=== PATIENT | female | born 1940 | race Caucasian/White ===

== ENCOUNTER 2017-02-18 10:25 | Emergency (ER) | payer OTHER, MEDICARE ==
[2017-02-18 10:39] VITALS: TEMP 97.5; BMI 32.2
[2017-02-18] MEDS ORDERED: ONDANSETRON 4 MG/2 ML VIAL IVPUSH ONE (11:10)
[2017-02-18] MEDS ORDERED: SIMETHICONE 80 MG TAB.CHEW (FP) PO ONE (11:11)
[2017-02-18 11:20] LABS: BASOPHIL 0.5 % (0-2.0); EOSINOPHIL 2.3 % (0-4.5); MCH 27.4 pg (25.7-33.7); MCHC 32.2 g/dl (32.0-36.0); MEAN CELL VOLUME 84.9 fl (80-96); MEAN PLT VOLUME 7.4 fl (7.5-11.1); NEUTROPHILS 69.5 % (42.8-82.8); PLATELET COUNT 290 K/MM3 (134-434); RDW 14.2 % (11.6-15.6); WHITE BLOOD COUNT 8.3 K/mm3 (4.0-10.0)
[2017-02-18] MEDS ORDERED: ONDANSETRON 4 MG/2 ML VIAL ONE (11:27)
[2017-02-18 11:30] LABS: URINE APPEARANCE CLEAR; URINE BILIRUBIN NEGATIVE (NEGATIVE); URINE BLOOD NEGATIVE (NEGATIVE); URINE COLOR LTYELLOW; URINE GLUCOSE (UA) NEGATIVE (NEGATIVE); URINE KETONE TRACE (NEGATIVE); URINE NITRITE NEGATIVE (NEGATIVE); URINE PROTEIN NEGATIVE (NEGATIVE); URINE UROBILINOGEN NEGATIVE E.U./dl (0.2-1.0)
[2017-02-18 11:34] LABS: URINE LEUK ESTERASE TRACE (NEGATIVE)
[2017-02-18 11:35] LABS: URINE MUCUS RARE; URINE RBC <1 /hpf (0-3); URINE WBC 3 /hpf (3-5)
[2017-02-18 11:47] LABS: ALBUMIN 3.5 g/dl (3.4-5.0); BILIRUBIN,TOTAL 0.9 mg/dL (0.2-1.0); CALCIUM 9.2 mg/dL (8.5-10.1); COCKROFT - GAULT 56.542; TOT PROT 7.4 g/dl (6.4-8.2)
--- NOTE | 2017-02-18 11:53 | PDOC ---
History of Present Illness - General History Source: Patient, Family Exam Limitations: No Limitations - History of Present Illness Initial Comments: 02/18/17 11:53 The patient is a 76 year old female with a significant past medical history of hypertension, and hypercholesterolemia, presenting to the Emergency Department with mid abdominal pain and nausea. The patient reports that her mid abdominal pain, which she describes as her stomach, started about one week ago. She admits that the pain is exacerbated with meals, and reports associated nausea. The patient states that she feels her abdomen is gassy or distended. The patient s daughter reports that the patient has vomited once or twice this past week. The patient reports taking Pepto Bismol for her symptoms with some relief. She reports having dark stool today, which is most likely due to the Pepto Bismol. The patient denies diarrhea, or constipation. Patient denies recent change in diet. Patient denies change in appetite, or weight gain. Patient denies fever, chills, and cough. Patient denies neck pain, or back pain. Surgical Hx: appendectomy <Stephanie Waite - Last Filed: 02/18/17 13:10> <Michel Baptiste - Last Filed: 02/18/17 14:20> - General Chief Complaint: Nausea Stated Complaint: ABD PAIN Time Seen by Provider: 02/18/17 11:03 Past History <Stephanie Waite - Last Filed: 02/18/17 13:10> - Past Medical History HTN: Yes Hypercholesterolemia: Yes - Surgical History Appendectomy: Yes - Psycho/Social/Smoking Cessation Hx Anxiety: No Suicidal Ideation: No Smoking History: Never smoked Have you smoked in the past 12 months: No Information on smoking cessation initiated: No Hx Alcohol Use: No Drug/Substance Use Hx: No Substance Use Type: None <Michel Baptiste - Last Filed: 02/18/17 14:20> - Past Medical History Allergies/Adverse Reactions: Allergies Allergy/AdvReac Type Severity Reaction Status Date / Time No Known Allergies Allergy Verified 02/18/17 10:36 Home Medications: Ambulatory Orders Atorvastatin Ca [Lipitor] 10 mg PO HS 02/18/17 Lorazepam 1 mg PO DAILY 02/18/17 Magnesium Citrate [Citroma -] 150 ml PO BID #1 bottle 02/18/17 Ramipril 10 mg PO DAILY 02/18/17 Review of Systems - Review of Systems Able to Perform ROS?: Yes Comments:: 02/18/17 11:53 GENERAL/CONSTITUTIONAL: No fever or chills. No weakness. HEAD, EYES, EARS, NOSE AND THROAT: No change in vision. No ear pain or discharge. No sore throat. CARDIOVASCULAR: No chest pain or shortness of breath. RESPIRATORY: No cough, wheezing, or hemoptysis. GASTROINTESTINAL: + mild abdominal pain, + nausea, + vomiting, + dark stools, + gassy. No diarrhea or constipation. GENITOURINARY: No dysuria, frequency, or change in urination. MUSCULOSKELETAL: No joint or muscle swelling or pain. No neck or back pain. SKIN: No rash NEUROLOGIC: No headache, vertigo, loss of consciousness, or change in strength/ sensation. ENDOCRINE: No increased thirst. No abnormal weight change. HEMATOLOGIC/LYMPHATIC: No anemia, easy bleeding, or history of blood clots. ALLERGIC/IMMUNOLOGIC: No hives or skin allergy. <Stephanie Waite - Last Filed: 02/18/17 13:10> *Physical Exam - Vital Signs Last Vital Signs Temp Pulse Resp BP Pulse Ox 97.5 F L 66 18 177/82 100 02/18/17 10:37 02/18/17 10:37 02/18/17 10:37 02/18/17 10:37 02/18/17 10:37 - Physical Exam Comments: 02/18/17 11:54 GENERAL: Patient appears nervous. Awake, alert, and fully oriented, in no acute distress HEAD: No signs of trauma EYES: PERRLA, EOMI, sclera anicteric, conjunctiva clear ENT: Auricles normal inspection, hearing grossly normal, nares patent, oropharynx clear without exudates. Moist mucosa NECK: Normal ROM, supple, no lymphadenopathy, JVD, or masses LUNGS: Breath sounds equal, clear to auscultation bilaterally. No wheezes, and no crackles HEART: Regular rate and rhythm, normal S1 and S2, no murmurs, rubs or gallops ABDOMEN: Slightly distended abdomen, no tenderness. Soft, normoactive bowel sounds. No guarding, no rebound. No masses EXTREMITIES: Normal range of motion, no edema. No clubbing or cyanosis. No cords, erythema, or tenderness NEUROLOGICAL: Cranial nerves II through XII grossly intact. Normal speech, normal gait SKIN: Warm, Dry, normal turgor, no rashes or lesions noted. <Stepahnie Waite - Last Filed: 02/18/17 13:10> - Vital Signs Last Vital Signs Temp Pulse Resp BP Pulse Ox 97.5 F L 66 18 177/82 100 02/18/17 10:37 02/18/17 10:37 02/18/17 10:37 02/18/17 10:37 02/18/17 10:37 <Michel Baptiste - Last Filed: 02/18/17 14:20> ED Treatment Course - LABORATORY CBC & Chemistry Diagram: 02/18/17 11:10 02/18/17 11:10 - ADDITIONAL ORDERS Additional order review: Laboratory Results 02/18/17 02/18/17 11:20 11:10 Sodium 142 Potassium 4.3 Chloride 106 Carbon Dioxide 25 Anion Gap 11 BUN 20 H Creatinine 1.0 Creat Clearance w eGFR 53.91 Random Glucose 95 Calcium 9.2 Total Bilirubin 0.9 AST 16 ALT 20 Alkaline Phosphatase 92 Total Protein 7.4 Albumin 3.5 Lipase 125 Urine Color Ltyellow Urine Appearance Clear Urine pH 5.0 Ur Specific [place] 1.013 Urine Protein Negative Urine Glucose (UA) Negative Urine Ketones Trace H Urine Blood Negative Urine Nitrite Negative Urine Bilirubin Negative Urine Urobilinogen Negative Ur Leukocyte Esterase Trace H Urine RBC <1 Urine WBC 3 Ur Epithelial Cells Rare Urine Mucus Rare 02/18/17 11:10 RBC 4.86 MCV 84.9 MCHC 32.2 RDW 14.2 MPV 7.4 L Neutrophils % 69.5 Lymphocytes % 22.2 Monocytes % 5.5 Eosinophils % 2.3 Basophils % 0.5 - RADIOLOGY Radiograph Interpretation: 02/18/17 13:10 Abdominal Ultrasound As reviewed by Dr. Morales Montoya Impression: No definite abnormality is seen. - Medications Given in the ED: ED Medications Discontinued Medications Generic Name Dose Route Start Last Admin Trade Name Freq PRN Reason Stop Dose Admin Ondansetron HCl 4 mg 02/18/17 11:10 02/18/17 11:32 Zofran Injection IVPUSH 02/18/17 11:11 4 mg ONCE ONE Administration Simethicone 80 mg 02/18/17 11:11 02/18/17 11:36 Mylicon - PO 02/18/17 11:12 80 mg ONCE ONE Administration <Stephanie Waite - Last Filed: 02/18/17 13:10> - LABORATORY CBC & Chemistry Diagram: 02/18/17 11:10 02/18/17 11:10 - ADDITIONAL ORDERS Additional order review: Laboratory Results 02/18/17 02/18/17 11:20 11:10 Sodium 142 Potassium 4.3 Chloride 106 Carbon Dioxide 25 Anion Gap 11 BUN 20 H Creatinine 1.0 Creat Clearance w eGFR 53.91 Random Glucose 95 Calcium 9.2 Total Bilirubin 0.9 AST 16 ALT 20 Alkaline Phosphatase 92 Total Protein 7.4 Albumin 3.5 Lipase 125 Urine Color Ltyellow Urine Appearance Clear Urine pH 5.0 Ur Specific [place] 1.013 Urine Protein Negative Urine Glucose (UA) Negative Urine Ketones Trace H Urine Blood Negative Urine Nitrite Negative Urine Bilirubin Negative Urine Urobilinogen Negative Ur Leukocyte Esterase Trace H Urine RBC <1 Urine WBC 3 Ur Epithelial Cells Rare Urine Mucus Rare 02/18/17 11:10 RBC 4.86 MCV 84.9 MCHC 32.2 RDW 14.2 MPV 7.4 L Neutrophils % 69.5 Lymphocytes % 22.2 Monocytes % 5.5 Eosinophils % 2.3 Basophils % 0.5 - RADIOLOGY Radiology Studies Ordered: Category Date Time Status GALLBLADDER US [US] Stat Ultrasound 02/18/17 11:07 Ordered - Medications Given in the ED: ED Medications Discontinued Medications Generic Name Dose Route Start Last Admin Trade Name Argelia PRN Reason Stop Dose Admin Ondansetron HCl 4 mg 02/18/17 11:10 02/18/17 11:32 Zofran Injection IVPUSH 02/18/17 11:11 4 mg ONCE ONE Administration Simethicone 80 mg 02/18/17 11:11 02/18/17 11:36 Mylicon - PO 02/18/17 11:12 80 mg ONCE ONE Administration <Michel Baptiste - Last Filed: 02/18/17 14:20> *DC/Admit/Observation/Transfer - Attestations Scribe Attestion: 02/18/17 11:54 Documentation prepared by Stephanie Waite, acting as medical transcription for Michel Baptiste DO. <Stephanie Waite - Last Filed: 02/18/17 13:10> - Discharge Dispostion Admit: No - Attestations Physician Attestion: 04/30/17 11:52 I, Dr. Michel Baptiste, attest that this document has been prepared under my direction and personally reviewed by me in its entirety. I further attest, that it accurately reflects all work, treatment, procedures and medical decision -making performed by me. <Michel Baptiste - Last Filed: 02/18/17 14:20> Diagnosis at time of Disposition: Abdominal bloating - Discharge Dispostion Disposition: HOME Condition at time of disposition: Good - Prescriptions Prescriptions: Magnesium Citrate [Citroma -] 150 ml PO BID #1 bottle - Patient Instructions Printed Discharge Instructions: DI for Constipation, DI for Abdominal Pain- Adult Additional Instructions: Mrs Patterson- Try the magnesium citrate (citroma), See your doctor later this week and return to us if any problems. Best- Dr. Michel Baptiste
[2017-02-18 14:26] VITALS: BP 158/72; PULSE 61
== END 2017-02-18 14:26 | disposition home or self-care (01) ==
LOC: JER 10:25
PROC: 3E033GC Introduction of Other Therapeutic Substance into Peripheral Vein, Percutaneous Approach (ICD-10-PCS; principal; 2017-02-18)
DX: R14.0 Abdominal distension (gaseous) (principal); E78.00 Pure hypercholesterolemia, unspecified
CPT/HCPCS: 36415; 74020-TC; 76705-TC; 80053; 81003; 81015; 83690; 85025; 87086; 96374; 99283-25

== ENCOUNTER 2018-11-04 10:23 | Emergency (ER) | payer OTHER, MEDICARE ==
[2018-11-04 10:29] VITALS: TEMP 97.5; BMI 33.2
--- NOTE | 2018-11-04 10:37 | PDOC ---
History of Present Illness - General Chief Complaint: Headache Stated Complaint: headache Time Seen by Provider: 11/04/18 10:36 History Source: Patient - History of Present Illness Initial Comments: 11/04/18 10:49 The patient is a 78 year old female with a PMH of HTN, HLD who presents with acute onset of vomiting, diarrhea, headache and fever/chills. Headache is frontal and c/w her previous headaches which occur weekly and which are relieved by Motrin. States she drank coffee and ate a waffle this morning and soon after felt nauseous and vomited. Has vomited 2-3x since then, yellowish in color. Also notes 3 episodes of non-bloody watery stool. Further c/o back ache. Endorses subjective fevers/chills. H/o viral URI last week, was evaluated by PMD with no concerning findings. Was unable to take her medications this morning (Ramipril, Atorvastatin) 2/2 to her SiSx. The patient denies chest pain, shortness of breath, numbness/tingling, recent travel or sick contacts. NKDA Surgical: appendectomy Social: lifetime non-smoker PMD: Dr. Jad Rivera M.D. As per EMR, patient was evaluated in our ED in 2017 for abdominal pain and improved with symptomatic care. Past History - Past Medical History Allergies/Adverse Reactions: Allergies Allergy/AdvReac Type Severity Reaction Status Date / Time No Known Allergies Allergy Verified 11/04/18 10:24 Home Medications: Ambulatory Orders Atorvastatin Ca [Lipitor] 10 mg PO HS 02/18/17 Ramipril 10 mg PO DAILY 02/18/17 Escitalopram Oxalate [Lexapro -] 10 mg PO DAILY 11/04/18 COPD: No HTN: Yes Hypercholesterolemia: Yes - Surgical History Appendectomy: Yes - Suicide/Smoking/Psychosocial Hx Smoking History: Never smoked Have you smoked in the past 12 months: No Hx Alcohol Use: No Drug/Substance Use Hx: No Substance Use Type: None *Physical Exam - Vital Signs Last Vital Signs Temp Pulse Resp BP Pulse Ox 97.5 F L 60 17 190/66 H 100 11/04/18 10:24 11/04/18 10:24 11/04/18 10:24 11/04/18 10:24 11/04/18 10:24 - Physical Exam General Appearance: Yes: Nourished, Appropriately Dressed HEENT: positive: Normal Voice, Pharyngeal Erythema, Hearing Grossly Normal. negative: Tonsillar Exudate, Tonsillar Erythema, Sinus Tenderness, TM Bulging, TM Dull, TM Erythema Neck: positive: Trachea midline, Supple Respiratory/Chest: positive: Lungs Clear, Normal Breath Sounds. negative: Crackles, Rales Cardiovascular: positive: S1, S2 Gastrointestinal/Abdominal: positive: Normal Bowel Sounds, Soft. negative: Distended, Guarding, Rebound, Tenderness Extremity: positive: Normal Capillary Refill, Normal Inspection Integumentary: positive: Normal Color, Dry, Warm Moderate Sedation - Procedure Monitoring Vital Signs: Procedure Monitoring Vital Signs Temperature 97.5 F L 11/04/18 10:24 Pulse Rate 60 11/04/18 10:24 Respiratory Rate 17 11/04/18 10:24 Blood Pressure 190/66 H 11/04/18 10:24 O2 Sat by Pulse Oximetry (%) 100 11/04/18 10:24 ED Treatment Course - LABORATORY CBC & Chemistry Diagram: 11/04/18 11:00 11/04/18 11:27 Medical Decision Making - Medical Decision Making 11/04/18 11:10 78 year old female with acute onset of body aches, subjective/fever, vomiting, diarrhea. Hypertensive (161/52) @ presentation other VS unremarkable. Will test for Influenza. Basic labs to r/o acute infection as well as electrolyte derangement. CXR to evaluate for PNA (no cough), epidural abscess (Back pain). Will administer IV fluids, Tylenol, Zofran. Will have patient take home BP meds once nausea resolved. 11/04/18 12:05 CBC shows no leukocytosis Patient reassessed @ bedside, resting comfortably. 11/04/18 12:10 CMP unremarkable 11/04/18 12:45 Influenza negative As patient is improved with symptomatic care, will repeat VS and discharge home with return precautions and instruction to f/u with PMD. 11/04/18 12:45 Repeat BP 121/61 Patient discharged home. I discussed the physical exam findings, ancillary test results and final diagnoses with the patient. I answered all of the patient's questions. The patient was satisfied with the care received and felt comfortable with the discharge plan and treatment plan. The patient will return to the Emergency Department with any new, persistent or worsening symptoms. *DC/Admit/Observation/Transfer Diagnosis at time of Disposition: Vomiting, Diarrhea - Discharge Dispostion Condition at time of disposition: Stable Decision to Admit order: No - Referrals Referrals: Nicole Street MD [Primary Care Provider] - - Patient Instructions Printed Discharge Instructions: DI for Viral Syndrome Additional Instructions: All of your labs and a chest x-ray showed no concerning findings At this time you are safe for discharge home. You can take Tylenol (up to 4000 mg daily) for the next 3 days for your symptoms. Drink lots of water and advance your diet as tolerated starting with soft foods (mashed potatoes, bread,applesauce). Make a follow-up appointment with your primary care doctor in the next 1 week for further evaluation. Return to the Emergency Department for any new/worsening/concerning symptoms. - Post Discharge Activity
--- NOTE | 2018-11-04 10:48 | PDOC ---
Attending Attestation - Resident Resident Name: Betty Dutta - ED Attending Attestation I have performed the following: I have examined & evaluated the patient, The case was reviewed & discussed with the resident, I agree w/resident's findings & plan, Exceptions are as noted - HPI HPI: 78 yo F presents with malaise, sweating this morning, associated with N/V/D. + Subjective fever, but did not measure a temp. Denies cough, congestion, ear pain , throat pain, abd pain. She states she had URI symptoms 1 week ago. - Physicial Exam PE: GENERAL: Awake, alert, and fully oriented, in no acute distress HEAD: No signs of trauma EYES: PERRLA, EOMI, sclera anicteric, conjunctiva clear ENT: Auricles normal inspection, hearing grossly normal, nares patent, oropharynx clear without exudates. Moist mucosa NECK: Normal ROM, supple. +Anterior cervical lymphadenopathy. No JVD or masses LUNGS: Breath sounds equal, clear to auscultation bilaterally. No wheezes, and no crackles HEART: Regular rate and rhythm, normal S1 and S2, no murmurs, rubs or gallops ABDOMEN: Soft, nontender, normoactive bowel sounds. No guarding, no rebound. No masses EXTREMITIES: Normal range of motion, no edema. No clubbing or cyanosis. No cords, erythema, or tenderness NEUROLOGICAL: Cranial nerves II through XII grossly intact. Normal speech, normal gait. Motor and sensation intact SKIN: Warm, Dry, normal turgor, no rashes or lesions noted. - Medical Decision Making Pt with viral symptoms, flu negative, CXR negative, labs no significant findings with exception of neutrophil predominance. Pt reports improvement with IV fluids and tylenol. Stable for DC home.
[2018-11-04] MEDS ORDERED: SODIUM CHLORIDE 0.9% 500 ML INFUS.BAG IV ONE (10:50)
[2018-11-04] MEDS ORDERED: ACETAMINOPHEN 1000 MG/100 ML VIAL (NON FORMULARY) IVPB ONE (10:58)
[2018-11-04] MEDS ORDERED: ONDANSETRON 4 MG/2 ML VIAL IVPUSH ONE (11:09)
[2018-11-04 11:16] LABS: HEMATOCRIT 41.9 % (32.4-45.2); HEMOGLOBIN 13.4 GM/dl (10.7-15.3); MCH 27.8 pg (25.7-33.7); MEAN CELL VOLUME 86.7 fl (80-96); MEAN PLT VOLUME 7.6 fl (7.5-11.1); PLATELET COUNT 347 K/MM3 (134-434); RBC 4.83 M/mm3 (3.60-5.2); RDW 13.4 % (11.6-15.6); WHITE BLOOD COUNT 8.8 K/mm3 (4.0-10.8)
[2018-11-04] MEDS ORDERED: ACETAMINOPHEN INJECTION 100 ML IVPB ONE (11:19)
[2018-11-04] MEDS ORDERED: ONDANSETRON 4 MG/2 ML VIAL ONE (11:20)
[2018-11-04 11:49] LABS: PLATELET ESTIMATE ADEQUATE
[2018-11-04 12:05] LABS: ALBUMIN 3.2 g/dl (3.5-5.0); ALK PHOS 69 U/L (32-92); ANION GAP 8 MMOL/L (8-16); BILIRUBIN,TOTAL 0.3 mg/dl (0.2-1.0); BLOOD UREA NITROGEN 23 mg/dl (7-18); CALCIUM 8.2 mg/dl (8.4-10.2); CHLORIDE 105 mmol/L (98-107); CO2 23 mmol/L (22-28); CREATININE 0.9 mg/dl (0.6-1.3); GLUCOSE,RANDOM 93 mg/dl (74-106); POTASSIUM 3.9 mmol/L (3.5-5.1); SGOT/AST 21 U/L (10-42); SGPT/ALT 13 U/L (10-40); SODIUM 136 mmol/L (136-145); TOT PROT 6.5 g/dl (6.4-8.3)
[2018-11-04 13:12] VITALS: BP 121/61; PULSE 57
== END 2018-11-04 13:16 | disposition home or self-care (01) ==
LOC: FER 10:23
PROC: 3E033NZ Introduction of Analgesics, Hypnotics, Sedatives into Peripheral Vein, Percutaneous Approach (ICD-10-PCS; principal; 2018-11-04)
PROC: 3E033GC Introduction of Other Therapeutic Substance into Peripheral Vein, Percutaneous Approach (ICD-10-PCS; 2018-11-04)
PROC: 3E0337Z Introduction of Electrolytic and Water Balance Substance into Peripheral Vein, Percutaneous Approach (ICD-10-PCS; 2018-11-04)
DX: R11.10 Vomiting, unspecified (principal); R19.7 Diarrhea, unspecified; I10 Essential (primary) hypertension; E78.00 Pure hypercholesterolemia, unspecified; E78.5 Hyperlipidemia, unspecified
CPT/HCPCS: 36415; 71045-TC-FY; 80053; 85025; 87804; 96361; 96374; 96375; 99282-25; J0131

== ENCOUNTER 2022-07-28 06:06 | Emergency (ER) | payer OTHER, MEDICARE ==
[2022-07-28 06:26] VITALS: BMI 30.1
[2022-07-28] MEDS ORDERED: FAMOTIDINE 20 MG/50 ML IVPB 20 MG/50 ML MG IVPB ONE ×2 (07:11→07:31)
[2022-07-28] MEDS ORDERED: ACETAMINOPHEN 1000 MG/100 ML BAG IVPB ONE (07:13)
[2022-07-28] MEDS ORDERED: ACETAMINOPHEN INJECTION 100 ML IVPB ONE (07:31)
[2022-07-28 07:44] LABS: HEMATOCRIT 39.9 % (32.4-45.2); HEMOGLOBIN 13.3 G/dL (10.7-15.3); MCH 28.5 pg (25.7-33.7); MCHC 33.2 g/dl (32.0-36.0); MEAN CELL VOLUME 85.7 fl (80-96); PLATELET COUNT 316.6 10^3/uL (134-434); RBC 4.66 10^6/uL (3.60-5.2); RDW 14.7 % (11.6-15.6); WHITE BLOOD COUNT 13.3 10^3/uL (4.0-10.8)
[2022-07-28 07:45] LABS: ALBUMIN 3.5 g/dl (3.4-5.0); BILIRUBIN,TOTAL 0.8 mg/dl (0.2-1); CALCIUM 8.9 mg/dl (8.5-10); CREATININE 0.9 mg/dl (0.55-1.3)
[2022-07-28 08:23] LABS: PLATELET ESTIMATE ADEQUATE
[2022-07-28 09:06] VITALS: TEMP 99.2
[2022-07-28] MEDS ORDERED: CEFOXITIN SODIUM 2 GM in DEXTROSE 5%-WATER - 100 ML IVPB ONE (09:15)
[2022-07-28 09:28] VITALS: BP 133/54; PULSE 82; RESP 19
== END 2022-07-28 10:00 | disposition left against medical advice (07) ==
LOC: FER 06:06
PROC: 3E0333Z Introduction of Anti-inflammatory into Peripheral Vein, Percutaneous Approach (ICD-10-PCS; principal; 2022-07-28)
PROC: 3E03329 Introduction of Other Anti-infective into Peripheral Vein, Percutaneous Approach (ICD-10-PCS; 2022-07-28)
PROC: 3E033GC Introduction of Other Therapeutic Substance into Peripheral Vein, Percutaneous Approach (ICD-10-PCS; 2022-07-28)
DX: K81.0 Acute cholecystitis (principal)
CPT/HCPCS: 0241U-QW; 36415; 76705-TC; 80053; 81003; 82550; 83605; 83690; 84484; 85025; 93005; 99285-25